=== PATIENT | female | born 1965 | race Caucasian/White ===

== ENCOUNTER 2018-01-01 05:15 | Emergency (ER) | payer MEDICAID ==
[~2018-01-01] VITALS: Ht 160 cm; Wt 98.0 kg
[2018-01-01 06:34] LABS: Basophils # (auto) 0.1 uL; Basophils % (auto) 1.3 % (0.0-2.0); Eosinophils # (auto) 0.5 uL; Eosinophils % (auto) 5.2 % (0.0-7.0); Hemoglobin 12.6 g/dL (12.2-16.2); Lymphocytes # (auto) 3.7 uL; Lymphocytes % (auto) 39.3 % (10.0-50.0); Mean Corpuscular Hemoglobin 29.8 pg (28.0-32.0); Mean Corpuscular Hgb Conc. 33.2 g/dL (32.0-36.0); Mean Corpuscular Volume 89.6 fL (80.0-100.0); Monocytes # (auto) 0.8 uL; Monocytes % (auto) 8.6 % (0.0-12.0); Neutrophils # (auto) 4.3 uL; Neutrophils % (auto) 45.6 % (37.0-80.0); Nucleated Red Blood Cells % 0.1 %; Platelet Count (auto) 268 10^3/uL (140-450); Red Blood Cells 4.23 10^6/uL (4.0-5.20); Red Cell Distribution Width 13.6 % (11.8-14.3); White Blood Cell 9.5 10^3/uL (4.4-10.8)
[2018-01-01 06:50] LABS: INR 0.96 (0.9-1.15); Partial Thromboplastin Time 27.4 sec (22.64-33.71); Prothrombin Time 10.5 sec (9.37-12.3)
[2018-01-01 06:52] LABS: Albumin 3.6 g/dL (3.4-5.0); BUN/Creatinine Ratio 26.4; Bilirubin, Total 0.5 mg/dL (0.2-1.0); Calcium 8.8 mg/dL (8.5-10.1); Magnesium 2.7 mg/dL (1.6-2.6); Potassium 3.8 mmol/L (3.5-5.1); Total Protein 7.7 g/dL (6.4-8.2)
[2018-01-01] MEDS ORDERED: IOHEXOL 350 MG/ML 100ML IJ ONE (08:09)
[2018-01-01] MEDS ORDERED: ENOXAPARIN SOD 100 MG/1 ML SYRINGE SC ONE (08:15)
[2018-01-01] MEDS ORDERED: NALBUPHINE HCL 10 MG/1ml INJECTION IV ONE (10:15)
[2018-01-01] MEDS ORDERED: ONDANSETRON HCL 4 MG/2 ML VIAL IV ONE (10:15)
[2018-01-01] MEDS ORDERED: LISINOPRIL 20 MG TAB PO ONE (10:15)
[2018-01-01 12:04] VITALS: BP 147/77
== END 2018-01-01 12:38 | disposition short-term general hospital (02) ==
LOC: ER 05:15
DX: S72.402D Unspecified fracture of lower end of left femur, subsequent encounter for closed fracture with routine healing (principal); I10 Essential (primary) hypertension; X58.XXXD Exposure to other specified factors, subsequent encounter
CPT/HCPCS: 36415; 71275; 73700; 80053; 83735; 83880; 84702; 85025; 85379; 85610; 85730; 93005; 93971; 96372; 96374; 96375; 99285; J1650; J2300; J2405; Q9967

== ENCOUNTER 2019-02-12 14:59 | Emergency (ER) | payer MEDICAID ==
[~2019-02-12] VITALS: Ht 162.6 cm; Wt 99.8 kg
[2019-02-12 15:27] VITALS: BP 153/97
[2019-02-12] MEDS ORDERED: KETOROLAC TROMETH 60MG/2ML VIAL IM ONE (16:30)
== END 2019-02-12 17:16 | disposition home or self-care (01) ==
LOC: ER 15:06
DX: M23.92 Unspecified internal derangement of left knee (principal); M25.462 Effusion, left knee; I10 Essential (primary) hypertension; Z96.652 Presence of left artificial knee joint
CPT/HCPCS: 73562; 93971; 96372; 99284; J1885

== ENCOUNTER 2020-01-18 03:42 | Emergency (ER) | payer SELFPAY ==
[~2020-01-18] VITALS: Ht 160 cm; Wt 100.7 kg
[2020-01-18] MEDS ORDERED: cloNIDine HCL 0.1 MG TAB PO ONE (04:00)
[2020-01-18 04:22] VITALS: BP 190/108
[2020-01-18] MEDS ORDERED: cefTRIAXone SOD 1,000 MG VL IM ONE (05:00)
== END 2020-01-18 04:58 | disposition home or self-care (01) ==
LOC: ER 03:46
DX: S61.451A Open bite of right hand, initial encounter (principal); I10 Essential (primary) hypertension; W54.0XXA Bitten by dog, initial encounter; Y93.89 Activity, other specified; Y99.8 Other external cause status; Y92.89 Other specified places as the place of occurrence of the external cause
CPT/HCPCS: 73130; 96372; 99283; J0696

== ENCOUNTER 2020-10-11 17:32 | Inpatient (IN) | payer MEDICAID, OTHER ==
[~2020-10-11] VITALS: Ht 160 cm; Wt 101.0 kg
[2020-10-11] MEDS: ACCU-CHEK COMFORT CURVE STRIP VI SCH (01:15)
[2020-10-11] MEDS ORDERED: REMDESIVIR PER PHARMACY 0 ML IV SCH (20:15)
[2020-10-11] MEDS ORDERED: NITROGLYCERIN 0.4 MG SL TAB SL PRN (20:15)
[2020-10-11] MEDS ORDERED: ALBUTEROL SULF HFA 90MCG INH 200DOSE IN PRN (20:15)
[2020-10-11] MEDS ORDERED: DEXTROSE (50%) 50ML SYRG IV PRN (20:15)
[2020-10-11] MEDS ORDERED: MORPHINE SULF INJ 2 MG/ML SYRINGE 1ML IV PRN (20:15)
[2020-10-11 21:25] LABS: Basophils # (auto) 0 10 ^3/uL (0-0.2); Basophils % (auto) 0.2 % (0.0-2.0); Eosinophils # (auto) 0 10 ^3/uL (0-0.8); Eosinophils % (auto) 0.1 % (0.0-7.0); Hematocrit 44.3 % (36.0-46.0); Hemoglobin 14.8 g/dL (12.2-16.2); Lymphocytes # (auto) 1.7 10 ^3/uL (0.4-5.4); Lymphocytes % (auto) 26.8 % (10.0-50.0); Mean Corpuscular Hemoglobin 29.7 pg (28.0-32.0); Mean Corpuscular Hgb Conc. 33.4 g/dL (32.0-36.0); Mean Corpuscular Volume 88.9 fL (80.0-100.0); Monocytes # (auto) 0.4 10 ^3/uL (0-1.3); Monocytes % (auto) 7.1 % (0.0-12.0); Neutrophils # (auto) 4.1 10 ^3/uL (1.6-8.6); Neutrophils % (auto) 65.8 % (37.0-80.0); Nucleated Red Blood Cells % 0.3 %; Platelet Count (auto) 147 10^3/uL (140-450); Red Blood Cells 4.99 10^6/uL (4.0-5.20); Red Cell Distribution Width 13.1 % (11.8-14.3); White Blood Cell 6.2 10^3/uL (4.4-10.8)
[2020-10-11 21:41] LABS: Partial Thromboplastin Time 27.6 sec (23.0-31.2)
[2020-10-11 21:48] LABS: Albumin 3.5 g/dL (3.4-5.0); Calcium 8.4 mg/dL (8.5-10.1); Potassium 3.6 mmol/L (3.5-5.1)
[2020-10-11 21:55] LABS: BUN/Creatinine Ratio 18.1; Bilirubin, Total 0.9 mg/dL (0.2-1.0); CRP High Sensitivity 6.97 mg/dL (< 0.3)
[2020-10-11] MEDS ORDERED: BUDESONIDE (INHALATION) 180 MCG IH IN SCH (22:00)
[2020-10-11] MEDS ORDERED: REMDESIVIR 200 MG in NS 210ml LOADING DOSE ADULT IV ONE (23:00)
[2020-10-12] VITALS: BP 124/82
[2020-10-12] MEDS: ALBUTEROL SULF 2.5 MG/0.5ML(0.5%) NEB SOLN NEB PRN (01:05)
[2020-10-12] MEDS: InsuLIN REG 1unit/0.01ml Soln (100units/ml) SC SCH ×5 (01:15→23:18)
[2020-10-12] MEDS: ACETAMINOPHEN 500 MG TAB PO PRN ×3 (01:15→21:55)
[2020-10-12] MEDS: guaiFENesin-CODEINE Liq 5 ML UD PO PRN ×2 (01:15→09:57)
[2020-10-12] MEDS: ENOXAPARIN SOD 40 MG/0.4 ML SYRINGE SC SCH ×3 (01:15→21:44)
[2020-10-12 01:59] VITALS: BP 124/82
[2020-10-12] MEDS: cefTRIAXone 1GM/50ML D5W 50 ML IV SCH ×2 (03:38→09:33)
[2020-10-12] MEDS: AZITHROMYCIN 500MG/D5WorNS 250ml IV SCH ×2 (04:13→10:26)
[2020-10-12] MEDS ORDERED: METF-370 PO (04:28)
[2020-10-12] MEDS ORDERED: LISI-646 PO (04:28)
[2020-10-12] MEDS ORDERED: ASPI-543 PO (04:28)
[2020-10-12 06:00] VITALS: BP 131/69
[2020-10-12] MEDS: ACCU-CHEK COMFORT CURVE STRIP VI SCH ×4 (06:43→21:44)
[2020-10-12] MEDS ORDERED: ONDANSETRON ODT 4 MG TAB PO PRN (08:00)
[2020-10-12] MEDS: MORPHINE SULF INJ 2 MG/ML SYRINGE 1ML IV PRN ×3 (08:53→21:52)
[2020-10-12] MEDS ORDERED: cefTRIAXone 1GM/50ML D5W 50 ML IV SCH (09:00)
[2020-10-12 09:30] VITALS: BP 127/73
[2020-10-12] MEDS: DexAMETHasone SOD PHOS 10MG/1ML VIAL INJ IV SCH (09:36)
[2020-10-12] MEDS: FAMOTIDINE 20 MG TAB PO SCH (09:36)
[2020-10-12] MEDS: CHOLECALCIFEROL (VITD3) 2,000 UNIT CAP PO SCH (09:37)
[2020-10-12] MEDS: ASCORBIC ACID 1,000 MG TAB PO SCH (09:37)
[2020-10-12] MEDS ORDERED: AZITHROMYCIN 500MG/D5WorNS 250ml IV SCH (10:00)
[2020-10-12 11:05] LABS: Basophils # (auto) 0 10 ^3/uL (0-0.2); Basophils % (auto) 0.6 % (0.0-2.0); Eosinophils # (auto) 0 10 ^3/uL (0-0.8); Eosinophils % (auto) 0.3 % (0.0-7.0); Hematocrit 39.6 % (36.0-46.0); Hemoglobin 13.1 g/dL (12.2-16.2); Lymphocytes # (auto) 1.1 10 ^3/uL (0.4-5.4); Lymphocytes % (auto) 20.2 % (10.0-50.0); Mean Corpuscular Hemoglobin 29.9 pg (28.0-32.0); Mean Corpuscular Hgb Conc. 33.2 g/dL (32.0-36.0); Monocytes # (auto) 0.3 10 ^3/uL (0-1.3); Monocytes % (auto) 6.5 % (0.0-12.0); Neutrophils # (auto) 3.9 10 ^3/uL (1.6-8.6); Neutrophils % (auto) 72.4 % (37.0-80.0); Nucleated Red Blood Cells % 0.1 %; Platelet Count (auto) 125 10^3/uL (140-450); Red Blood Cells 4.39 10^6/uL (4.0-5.20); Red Cell Distribution Width 13.5 % (11.8-14.3); White Blood Cell 5.4 10^3/uL (4.4-10.8)
[2020-10-12] MEDS: BUDESONIDE (INHALATION) 0.5 MG/2 ML NEB NEB SCH ×2 (11:24→19:50)
[2020-10-12 11:25] LABS: Albumin 2.8 g/dL (3.4-5.0); Calcium 8.1 mg/dL (8.5-10.1); Potassium 3.9 mmol/L (3.5-5.1)
[2020-10-12 11:27] LABS: BUN/Creatinine Ratio 22.6; Bilirubin, Total 0.6 mg/dL (0.2-1.0); Total Protein 7.1 g/dL (6.4-8.2)
[2020-10-12 13:10] VITALS: BP 115/70
[2020-10-12] MEDS ORDERED: DEXTROSE (50%) 50ML SYRG IV PRN (15:00)
[2020-10-12] MEDS: REMDESIVIR 100 MG in SODIUM CHL 0.9% 250 ML IV SCH (15:40)
[2020-10-12] MEDS: HYDROcodone-ACET 5/325MG TAB PO PRN (16:01)
[2020-10-12] MEDS: guaiFENesin-DM 100/10mg/5ml SYR PO PRN ×2 (16:01→21:37)
[2020-10-12] MEDS: DOXYCYCLINE 100 MG TAB/CAP PO SCH (21:36)
[2020-10-12 22:00] VITALS: BP 112/56
[2020-10-13] MEDS: ALBUTEROL SULF 2.5 MG/0.5ML(0.5%) NEB SOLN NEB PRN ×3 (03:40→20:04)
[2020-10-13 05:00] VITALS: BP 118/79
[2020-10-13] MEDS: ACCU-CHEK COMFORT CURVE STRIP VI SCH ×4 (06:15→22:00)
[2020-10-13] MEDS: InsuLIN REG 1unit/0.01ml Soln (100units/ml) SC SCH ×4 (06:16→23:15)
[2020-10-13 07:30] LABS: Albumin 2.7 g/dL (3.4-5.0); Calcium 8.6 mg/dL (8.5-10.1); Potassium 4.8 mmol/L (3.5-5.1)
[2020-10-13 07:33] LABS: BUN/Creatinine Ratio 31.9; Bilirubin, Total 0.5 mg/dL (0.2-1.0); Total Protein 7.4 g/dL (6.4-8.2)
[2020-10-13] MEDS: FUROSEMIDE 40 MG/4 ML VIAL IV SCH (08:45)
[2020-10-13] MEDS: cefTRIAXone 1GM/50ML D5W 50 ML IV SCH (08:45)
[2020-10-13] MEDS: DexAMETHasone SOD PHOS 10MG/1ML VIAL INJ IV SCH (08:45)
[2020-10-13] MEDS: POTASSIUM CHL 10 Meq TABLET PO SCH (08:46)
[2020-10-13] MEDS: FAMOTIDINE 20 MG TAB PO SCH (08:46)
[2020-10-13] MEDS: DOXYCYCLINE 100 MG TAB/CAP PO SCH ×2 (08:46→21:04)
[2020-10-13] MEDS: CHOLECALCIFEROL (VITD3) 2,000 UNIT CAP PO SCH (08:46)
[2020-10-13] MEDS: ASCORBIC ACID 1,000 MG TAB PO SCH (08:46)
[2020-10-13] MEDS: ENOXAPARIN SOD 40 MG/0.4 ML SYRINGE SC SCH ×2 (08:47→21:03)
[2020-10-13] MEDS: guaiFENesin-DM 100/10mg/5ml SYR PO PRN ×2 (08:47→21:04)
[2020-10-13] MEDS: HYDROcodone-ACET 5/325MG TAB PO PRN ×2 (08:47→21:04)
[2020-10-13 09:00] VITALS: BP 140/75
[2020-10-13] MEDS: BUDESONIDE (INHALATION) 0.5 MG/2 ML NEB NEB SCH ×2 (10:30→20:04)
[2020-10-13] MEDS: REMDESIVIR 100 MG in SODIUM CHL 0.9% 250 ML IV SCH (15:00)
[2020-10-13 17:00] VITALS: BP 146/87
[2020-10-13] MEDS: Glucerna Carbsteady SHAKE Vanilla 8oz PO SCH (18:19)
[2020-10-13 22:00] VITALS: BP 135/78
[2020-10-14] VITALS (8 sets, daily range): BP systolic 120–141; BP diastolic 70–93
[2020-10-14] MEDS: MORPHINE SULF INJ 2 MG/ML SYRINGE 1ML IV PRN (00:31)
[2020-10-14] MEDS: InsuLIN REG 1unit/0.01ml Soln (100units/ml) SC SCH ×3 (06:18→18:00)
[2020-10-14] MEDS: ALBUTEROL SULF 2.5 MG/0.5ML(0.5%) NEB SOLN NEB PRN ×3 (06:35→22:07)
[2020-10-14] MEDS: BUDESONIDE (INHALATION) 0.5 MG/2 ML NEB NEB SCH ×2 (06:35→22:07)
[2020-10-14] MEDS: ACCU-CHEK COMFORT CURVE STRIP VI SCH ×5 (06:38→23:59)
[2020-10-14] MEDS: Glucerna Carbsteady SHAKE Vanilla 8oz PO SCH ×2 (08:00→18:00)
[2020-10-14 08:16] LABS: Albumin 2.8 g/dL (3.4-5.0); Calcium 9.2 mg/dL (8.5-10.1)
[2020-10-14 08:20] LABS: BUN/Creatinine Ratio 36.4; Bilirubin, Total 0.4 mg/dL (0.2-1.0)
[2020-10-14] MEDS: FUROSEMIDE 40 MG/4 ML VIAL IV SCH (10:30)
[2020-10-14] MEDS: DOXYCYCLINE 100 MG TAB/CAP PO SCH ×2 (10:30→21:27)
[2020-10-14] MEDS: ENOXAPARIN SOD 40 MG/0.4 ML SYRINGE SC SCH ×2 (10:30→21:28)
[2020-10-14] MEDS: ASCORBIC ACID 1,000 MG TAB PO SCH (10:30)
[2020-10-14] MEDS: CHOLECALCIFEROL (VITD3) 2,000 UNIT CAP PO SCH (10:30)
[2020-10-14] MEDS: POTASSIUM CHL 10 Meq TABLET PO SCH (10:30)
[2020-10-14] MEDS: FAMOTIDINE 20 MG TAB PO SCH (10:30)
[2020-10-14] MEDS: DexAMETHasone SOD PHOS 10MG/1ML VIAL INJ IV SCH (10:30)
[2020-10-14] MEDS: cefTRIAXone 1GM/50ML D5W 50 ML IV SCH (10:30)
[2020-10-14] MEDS: REMDESIVIR 100 MG in SODIUM CHL 0.9% 250 ML IV SCH (15:49)
[2020-10-14] MEDS ORDERED: DEXTROSE (50%) 50ML SYRG IV PRN (18:00)
[2020-10-14] MEDS: INSULIN LANTUS (GLARGINE) 1 /0.01ml (100units/ml) SC SCH (21:27)
[2020-10-14] MEDS: ACETAMINOPHEN 500 MG TAB PO PRN (22:32)
[2020-10-15] MEDS: InsuLIN REG 1unit/0.01ml Soln (100units/ml) SC SCH ×4 (00:21→18:40)
[2020-10-15] MEDS: ACCU-CHEK COMFORT CURVE STRIP VI SCH ×3 (05:57→18:00)
[2020-10-15 07:19] VITALS: BP 131/82
[2020-10-15] MEDS: BUDESONIDE (INHALATION) 0.5 MG/2 ML NEB NEB SCH ×2 (07:19)
[2020-10-15] MEDS: ALBUTEROL SULF 2.5 MG/0.5ML(0.5%) NEB SOLN NEB PRN (07:20)
[2020-10-15] MEDS: Glucerna Carbsteady SHAKE Vanilla 8oz PO SCH ×2 (08:00→18:00)
[2020-10-15] MEDS: DexAMETHasone SOD PHOS 10MG/1ML VIAL INJ IV SCH (09:23)
[2020-10-15] MEDS: POTASSIUM CHL 10 Meq TABLET PO SCH (09:23)
[2020-10-15] MEDS: DOXYCYCLINE 100 MG TAB/CAP PO SCH ×2 (09:23→21:59)
[2020-10-15] MEDS: ASCORBIC ACID 1,000 MG TAB PO SCH (09:23)
[2020-10-15] MEDS: cefTRIAXone 1GM/50ML D5W 50 ML IV SCH (09:23)
[2020-10-15] MEDS: FAMOTIDINE 20 MG TAB PO SCH (09:23)
[2020-10-15] MEDS: CHOLECALCIFEROL (VITD3) 2,000 UNIT CAP PO SCH (09:23)
[2020-10-15] MEDS: ENOXAPARIN SOD 40 MG/0.4 ML SYRINGE SC SCH ×2 (10:00→22:00)
[2020-10-15] MEDS: FUROSEMIDE 40 MG/4 ML VIAL IV SCH (10:00)
[2020-10-15 11:20] VITALS: BP 125/81
[2020-10-15 14:00] VITALS: BP 135/76
[2020-10-15 15:14] VITALS: BP 136/80
[2020-10-15] MEDS: REMDESIVIR 100 MG in SODIUM CHL 0.9% 250 ML IV SCH (15:50)
[2020-10-15] MEDS: guaiFENesin-DM 100/10mg/5ml SYR PO PRN (21:31)
[2020-10-15] MEDS: MORPHINE SULF INJ 2 MG/ML SYRINGE 1ML IV PRN (21:31)
[2020-10-15 21:56] VITALS: BP 125/57
[2020-10-15] MEDS: INSULIN LANTUS (GLARGINE) 1 /0.01ml (100units/ml) SC SCH (22:01)
[2020-10-15] MEDS: ACETAMINOPHEN 500 MG TAB PO PRN (23:16)
[2020-10-16] MEDS: MORPHINE SULF INJ 2 MG/ML SYRINGE 1ML IV PRN ×2 (01:39→23:00)
[2020-10-16] MEDS ORDERED: ONDANSETRON HCL 4 MG/2 ML VIAL IV PRN (02:30)
[2020-10-16] MEDS: BUDESONIDE (INHALATION) 0.5 MG/2 ML NEB NEB SCH ×2 (05:55→19:24)
[2020-10-16] MEDS: ALBUTEROL SULF 2.5 MG/0.5ML(0.5%) NEB SOLN NEB PRN ×4 (05:55→19:25)
[2020-10-16 05:57] VITALS: BP 116/67
[2020-10-16] MEDS: ACCU-CHEK COMFORT CURVE STRIP VI SCH ×4 (06:08→19:55)
[2020-10-16] MEDS: InsuLIN REG 1unit/0.01ml Soln (100units/ml) SC SCH ×4 (06:10→19:55)
[2020-10-16 08:00] VITALS: BP 124/71
[2020-10-16] MEDS: Glucerna Carbsteady SHAKE Vanilla 8oz PO SCH ×2 (08:00→18:00)
[2020-10-16 08:18] LABS: Basophils # (auto) 0 10 ^3/uL (0-0.2); Basophils % (auto) 0.1 % (0.0-2.0); Eosinophils # (auto) 0 10 ^3/uL (0-0.8); Hemoglobin 14.2 g/dL (12.2-16.2); Lymphocytes # (auto) 1.2 10 ^3/uL (0.4-5.4); Lymphocytes % (auto) 11.9 % (10.0-50.0); Mean Corpuscular Hemoglobin 29.9 pg (28.0-32.0); Mean Corpuscular Hgb Conc. 33.8 g/dL (32.0-36.0); Mean Corpuscular Volume 88.4 fL (80.0-100.0); Monocytes # (auto) 0.6 10 ^3/uL (0-1.3); Monocytes % (auto) 5.9 % (0.0-12.0); Neutrophils # (auto) 8.4 10 ^3/uL (1.6-8.6); Neutrophils % (auto) 82.1 % (37.0-80.0); Platelet Count (auto) 210 10^3/uL (140-450); Red Blood Cells 4.75 10^6/uL (4.0-5.20); Red Cell Distribution Width 12.9 % (11.8-14.3); White Blood Cell 10.2 10^3/uL (4.4-10.8)
[2020-10-16] MEDS: cefTRIAXone 1GM/50ML D5W 50 ML IV SCH (09:15)
[2020-10-16] MEDS: ASCORBIC ACID 1,000 MG TAB PO SCH (09:30)
[2020-10-16] MEDS: FUROSEMIDE 40 MG/4 ML VIAL IV SCH (09:30)
[2020-10-16] MEDS: DOXYCYCLINE 100 MG TAB/CAP PO SCH ×2 (09:30→20:29)
[2020-10-16] MEDS: CHOLECALCIFEROL (VITD3) 2,000 UNIT CAP PO SCH (09:30)
[2020-10-16] MEDS: POTASSIUM CHL 10 Meq TABLET PO SCH (09:30)
[2020-10-16] MEDS: DexAMETHasone SOD PHOS 10MG/1ML VIAL INJ IV SCH (09:30)
[2020-10-16] MEDS: ENOXAPARIN SOD 40 MG/0.4 ML SYRINGE SC SCH ×2 (09:30→20:29)
[2020-10-16] MEDS: FAMOTIDINE 20 MG TAB PO SCH (09:30)
[2020-10-16 12:00] VITALS: BP 137/78
[2020-10-16 16:00] VITALS: BP 107/64
[2020-10-16 20:00] VITALS: BP 116/90
[2020-10-16 21:00] VITALS: BP 116/90
[2020-10-16] MEDS: INSULIN LANTUS (GLARGINE) 1 /0.01ml (100units/ml) SC SCH (23:01)
[2020-10-17] VITALS (44 sets, daily range): BP systolic 75–165; BP diastolic 38–81
[2020-10-17] MEDS: InsuLIN REG 1unit/0.01ml Soln (100units/ml) SC SCH ×5 (05:31→23:54)
[2020-10-17] MEDS: ACCU-CHEK COMFORT CURVE STRIP VI SCH ×5 (05:31→23:58)
[2020-10-17] MEDS: MORPHINE SULF INJ 2 MG/ML SYRINGE 1ML IV PRN ×2 (05:53→11:05)
[2020-10-17 07:13] LABS: Calcium 9.1 mg/dL (8.5-10.1); Potassium 4.6 mmol/L (3.5-5.1)
[2020-10-17] MEDS: ALBUTEROL SULF 2.5 MG/0.5ML(0.5%) NEB SOLN NEB PRN (07:52)
[2020-10-17] MEDS: BUDESONIDE (INHALATION) 0.5 MG/2 ML NEB NEB SCH ×2 (07:52→22:00)
[2020-10-17] MEDS: Glucerna Carbsteady SHAKE Vanilla 8oz PO SCH ×2 (08:00→17:54)
[2020-10-17] MEDS: cefTRIAXone 1GM/50ML D5W 50 ML IV SCH (09:00)
[2020-10-17] MEDS: CHOLECALCIFEROL (VITD3) 2,000 UNIT CAP PO SCH (10:00)
[2020-10-17] MEDS: ENOXAPARIN SOD 40 MG/0.4 ML SYRINGE SC SCH (10:00)
[2020-10-17] MEDS: DexAMETHasone SOD PHOS 10MG/1ML VIAL INJ IV SCH (10:00)
[2020-10-17] MEDS: ASCORBIC ACID 1,000 MG TAB PO SCH (10:00)
[2020-10-17] MEDS: POTASSIUM CHL 10 Meq TABLET PO SCH (10:00)
[2020-10-17] MEDS: FAMOTIDINE 20 MG TAB PO SCH (10:00)
[2020-10-17] MEDS: FUROSEMIDE 40 MG/4 ML VIAL IV SCH (10:00)
[2020-10-17] MEDS: DOXYCYCLINE 100 MG TAB/CAP PO SCH (10:00)
[2020-10-17] MEDS ORDERED: LORazepam 2MG/ML-1ML VIAL IV PRN ×2 (10:30→12:15)
[2020-10-17] MEDS ORDERED: SUCCINYLCHOLINE CHLORIDE 20 MG/ML 10ML VIAL IV ONE (11:56)
[2020-10-17] MEDS ORDERED: ETOMIDATE (2MG/ML) 20ML VIAL IV ONE (11:56)
[2020-10-17] MEDS ORDERED: ROCURONIUM 10MG/ML 10ML VIAL IV ONE (11:57)
[2020-10-17] MEDS ORDERED: fentaNYL Drip 2500mCg/250mlNS 250 ML IV ONE (12:14)
[2020-10-17] MEDS ORDERED: MIDAZOLAM DRIP 50 mg/50mL 50 ML IV ONE ×2 (12:14→12:15)
[2020-10-17] MEDS: MIDAZOLAM DRIP 50 mg/50mL 50 ML IV SCH ×2 (12:15→20:51)
[2020-10-17] MEDS ORDERED: DexAMETHasone SOD PHOS 10MG/1ML VIAL INJ IV ONE (12:15)
[2020-10-17] MEDS: fentaNYL Drip 2500mCg/250mlNS 250 ML IV SCH (12:15)
[2020-10-17] MEDS ORDERED: ENOXAPARIN SOD 60 MG/0.6 ML SYRINGE SC ONE (12:15)
[2020-10-17] MEDS ORDERED: MORPHINE SULF INJ 2 MG/ML SYRINGE 1ML IV PRN (12:15)
[2020-10-17] MEDS ORDERED: ENOXAPARIN SOD 100 MG/1 ML SYRINGE SC ONE (12:26)
[2020-10-17] MEDS ORDERED: ACETAMINOPHEN 650 mg PER 20.3 mL UD GT PRN (13:15)
[2020-10-17 13:41] LABS: Albumin 2.8 g/dL (3.4-5.0); Calcium 8.5 mg/dL (8.5-10.1); Potassium 4.2 mmol/L (3.5-5.1)
[2020-10-17 13:43] LABS: BUN/Creatinine Ratio 29.8; Bilirubin, Total 0.9 mg/dL (0.2-1.0); Total Protein 7.4 g/dL (6.4-8.2)
[2020-10-17 13:52] LABS: Basophils # (auto) 0 10 ^3/uL (0-0.2); Basophils % (auto) 0.1 % (0.0-2.0); Eosinophils # (auto) 0 10 ^3/uL (0-0.8); Eosinophils % (auto) 0.1 % (0.0-7.0); Hematocrit 43.5 % (36.0-46.0); Hemoglobin 14.4 g/dL (12.2-16.2); Lymphocytes % (auto) 5.6 % (10.0-50.0); Mean Corpuscular Hemoglobin 29.8 pg (28.0-32.0); Mean Corpuscular Hgb Conc. 33.2 g/dL (32.0-36.0); Mean Corpuscular Volume 89.9 fL (80.0-100.0); Monocytes # (auto) 0.7 10 ^3/uL (0-1.3); Monocytes % (auto) 4.1 % (0.0-12.0); Neutrophils # (auto) 16.2 10 ^3/uL (1.6-8.6); Neutrophils % (auto) 90.1 % (37.0-80.0); Platelet Count (auto) 215 10^3/uL (140-450); Red Blood Cells 4.84 10^6/uL (4.0-5.20); Red Cell Distribution Width 13.3 % (11.8-14.3)
[2020-10-17] MEDS ORDERED: IPRATROPIUM BROM 0.5 MG/2.5ML INH SOL NEB SCH (14:00)
[2020-10-17] MEDS ORDERED: NOREPINEPHRINE 8 MG/250ML KIT 250 ML IV ONE (14:23)
[2020-10-17] MEDS ORDERED: levoFLOXacin 750MG 150 ML IV ONE (14:45)
[2020-10-17] MEDS ORDERED: SODIUM CHLORIDE 0.9% 500 ML IV ONE (14:45)
[2020-10-17] MEDS: PROPOFOL 100 ML IV SCH (16:00)
[2020-10-17] MEDS: ALBUMIN 25% 100 ML IV SCH ×2 (17:52→22:52)
[2020-10-17] MEDS: NOREPINEPHRINE 8 MG/250ML KIT 250 ML IV SCH (17:53)
[2020-10-17] MEDS: ALBUTEROL SULF 2.5 MG/0.5ML(0.5%) NEB SOLN NEB SCH (20:15)
[2020-10-17] MEDS ORDERED: methylPREDNISolone SOD SUCC 40 MG/ML VL IV SCH (20:30)
[2020-10-17] MEDS ORDERED: diphenhdrAMINE HCL 50 MG/1 ML VL IV SCH (20:30)
[2020-10-17] MEDS ORDERED: ACETAMINOPHEN 650 mg PER 20.3 mL UD PO SCH (20:30)
[2020-10-17] MEDS ORDERED: TOCILIZUMAB 400 MG in SODIUM CHL 0.9% 80 ML IV SCH (21:00)
[2020-10-17] MEDS: ENOXAPARIN SOD 100 MG/1 ML SYRINGE SC SCH (22:16)
[2020-10-17] MEDS: INSULIN LANTUS (GLARGINE) 1 /0.01ml (100units/ml) SC SCH (22:43)
[2020-10-18] VITALS (91 sets, daily range): BP systolic 90–224; BP diastolic 51–98
[2020-10-18] MEDS: MIDAZOLAM DRIP 50 mg/50mL 50 ML IV SCH ×3 (01:41→20:15)
[2020-10-18 03:30] LABS: Basophils # (auto) 0.1 10 ^3/uL (0-0.2); Basophils % (auto) 0.8 % (0.0-2.0); Eosinophils # (auto) 0 10 ^3/uL (0-0.8); Hematocrit 38.8 % (36.0-46.0); Hemoglobin 12.9 g/dL (12.2-16.2); Lymphocytes # (auto) 0.8 10 ^3/uL (0.4-5.4); Lymphocytes % (auto) 8.5 % (10.0-50.0); Mean Corpuscular Hemoglobin 29.7 pg (28.0-32.0); Mean Corpuscular Hgb Conc. 33.2 g/dL (32.0-36.0); Mean Corpuscular Volume 89.4 fL (80.0-100.0); Monocytes # (auto) 0.3 10 ^3/uL (0-1.3); Monocytes % (auto) 3.2 % (0.0-12.0); Neutrophils # (auto) 8.7 10 ^3/uL (1.6-8.6); Neutrophils % (auto) 87.5 % (37.0-80.0); Platelet Count (auto) 179 10^3/uL (140-450); Red Blood Cells 4.34 10^6/uL (4.0-5.20); Red Cell Distribution Width 13.5 % (11.8-14.3); White Blood Cell 9.9 10^3/uL (4.4-10.8)
[2020-10-18 03:55] LABS: Potassium 4.3 mmol/L (3.5-5.1)
[2020-10-18 04:01] LABS: BUN/Creatinine Ratio 24.5; Bilirubin, Total 0.9 mg/dL (0.2-1.0); Calcium 8.1 mg/dL (8.5-10.1)
[2020-10-18] MEDS: ACCU-CHEK COMFORT CURVE STRIP VI SCH ×4 (06:30→23:25)
[2020-10-18] MEDS: InsuLIN REG 1unit/0.01ml Soln (100units/ml) SC SCH ×4 (06:31→23:29)
[2020-10-18] MEDS: ALBUMIN 25% 100 ML IV SCH (06:45)
[2020-10-18] MEDS: Glucerna Carbsteady SHAKE Vanilla 8oz PO SCH (08:00)
[2020-10-18] MEDS: ALBUTEROL SULF 2.5 MG/0.5ML(0.5%) NEB SOLN NEB SCH ×2 (09:00→18:58)
[2020-10-18] MEDS: BUDESONIDE (INHALATION) 0.5 MG/2 ML NEB NEB SCH ×2 (09:00→18:56)
[2020-10-18] MEDS: IPRATROPIUM BROM 0.5 MG/2.5ML INH SOL NEB SCH ×2 (09:00→18:58)
[2020-10-18] MEDS: POTASSIUM CHL 10 Meq TABLET PO SCH (10:00)
[2020-10-18] MEDS ORDERED: levoFLOXacin 750MG 150 ML IV SCH (10:00)
[2020-10-18] MEDS: cefTRIAXone 1GM/50ML D5W 50 ML IV SCH (10:31)
[2020-10-18] MEDS: DexAMETHasone SOD PHOS 10MG/1ML VIAL INJ IV SCH (10:37)
[2020-10-18] MEDS: FUROSEMIDE 40 MG/4 ML VIAL IV SCH (10:38)
[2020-10-18] MEDS: PANTOPRAZOLE 40 MG/10 ML VIAL INJ IV SCH (10:39)
[2020-10-18] MEDS: ENOXAPARIN SOD 100 MG/1 ML SYRINGE SC SCH ×2 (10:41→23:25)
[2020-10-18] MEDS: CHOLECALCIFEROL (VITD3) 2,000 UNIT CAP PO SCH (10:41)
[2020-10-18] MEDS: ASCORBIC ACID 1,000 MG TAB PO SCH (10:41)
[2020-10-18] MEDS: fentaNYL Drip 2500mCg/250mlNS 250 ML IV SCH ×2 (12:15→22:43)
[2020-10-18] MEDS ORDERED: ACETAMINOPHEN 650 mg PER 20.3 mL UD PO ONE (14:30)
[2020-10-18] MEDS ORDERED: methylPREDNISolone SOD SUCC 40 MG/ML VL IV ONE (14:30)
[2020-10-18] MEDS ORDERED: diphenhdrAMINE HCL 50 MG/1 ML VL IV ONE (14:30)
[2020-10-18] MEDS ORDERED: TOCILIZUMAB 400 MG in SODIUM CHL 0.9% 80 ML IV ONE (15:00)
[2020-10-18] MEDS: PROPOFOL 100 ML IV SCH ×2 (16:00→20:59)
[2020-10-18] MEDS: NOREPINEPHRINE 8 MG/250ML KIT 250 ML IV SCH (17:30)
[2020-10-18] MEDS ORDERED: DOPamine 1600MCG/ML D5W 250 ML IV ONE (18:51)
[2020-10-18] MEDS: DOPamine 1600MCG/ML D5W 250 ML IV SCH (19:00)
[2020-10-18 19:29] LABS: Albumin 2.8 g/dL (3.4-5.0); Calcium 8.4 mg/dL (8.5-10.1); Magnesium 2.8 mg/dL (1.6-2.6)
[2020-10-18 19:32] LABS: BUN/Creatinine Ratio 30.1; Bilirubin, Total 0.6 mg/dL (0.2-1.0); Phosphorus 3.8 mg/dL (2.5-4.90); Total Protein 6.8 g/dL (6.4-8.2)
[2020-10-18] MEDS: INSULIN LANTUS (GLARGINE) 1 /0.01ml (100units/ml) SC SCH (23:28)
[2020-10-19] VITALS (98 sets, daily range): BP systolic 101–184; BP diastolic 58–94
[2020-10-19] MEDS: MIDAZOLAM DRIP 50 mg/50mL 50 ML IV SCH ×4 (00:28→18:50)
[2020-10-19] MEDS: PROPOFOL 100 ML IV SCH ×2 (01:19→08:00)
[2020-10-19 04:03] LABS: Basophils # (auto) 0 10 ^3/uL (0-0.2); Basophils % (auto) 0.3 % (0.0-2.0); Eosinophils # (auto) 0 10 ^3/uL (0-0.8); Hemoglobin 13.5 g/dL (12.2-16.2); Lymphocytes # (auto) 0.8 10 ^3/uL (0.4-5.4); Lymphocytes % (auto) 5.7 % (10.0-50.0); Mean Corpuscular Hemoglobin 29.1 pg (28.0-32.0); Mean Corpuscular Hgb Conc. 32.9 g/dL (32.0-36.0); Mean Corpuscular Volume 88.6 fL (80.0-100.0); Monocytes # (auto) 0.6 10 ^3/uL (0-1.3); Monocytes % (auto) 4.3 % (0.0-12.0); Neutrophils # (auto) 12.4 10 ^3/uL (1.6-8.6); Neutrophils % (auto) 89.7 % (37.0-80.0); Platelet Count (auto) 232 10^3/uL (140-450); Red Blood Cells 4.63 10^6/uL (4.0-5.20); Red Cell Distribution Width 13.2 % (11.8-14.3); White Blood Cell 13.8 10^3/uL (4.4-10.8)
[2020-10-19 04:20] LABS: Calcium 8.9 mg/dL (8.5-10.1); Potassium 3.7 mmol/L (3.5-5.1)
[2020-10-19 04:22] LABS: BUN/Creatinine Ratio 38.2
[2020-10-19] MEDS: InsuLIN REG 1unit/0.01ml Soln (100units/ml) SC SCH ×3 (06:15→18:25)
[2020-10-19] MEDS: ACCU-CHEK COMFORT CURVE STRIP VI SCH ×3 (06:16→18:19)
[2020-10-19] MEDS: DOPamine 1600MCG/ML D5W 250 ML IV SCH ×2 (08:24→22:08)
[2020-10-19] MEDS: BUDESONIDE (INHALATION) 0.5 MG/2 ML NEB NEB SCH ×2 (08:35→18:23)
[2020-10-19] MEDS: DexAMETHasone SOD PHOS 10MG/1ML VIAL INJ IV SCH (09:29)
[2020-10-19] MEDS: cefTRIAXone 1GM/50ML D5W 50 ML IV SCH (09:29)
[2020-10-19] MEDS: ASCORBIC ACID 1,000 MG TAB PO SCH (09:30)
[2020-10-19] MEDS: CHOLECALCIFEROL (VITD3) 2,000 UNIT CAP PO SCH (09:30)
[2020-10-19] MEDS: PANTOPRAZOLE 40 MG/10 ML VIAL INJ IV SCH (09:30)
[2020-10-19] MEDS: INSULIN LANTUS (GLARGINE) 1 /0.01ml (100units/ml) SC SCH ×2 (09:31→22:36)
[2020-10-19] MEDS: ENOXAPARIN SOD 100 MG/1 ML SYRINGE SC SCH ×2 (09:31→22:37)
[2020-10-19 10:55] LABS: Urine WBC None Seen /hpf (0 - 5)
[2020-10-19 11:25] LABS: Urine Bacteria FEW /hpf (None Seen); Urine Blood 2+ /uL (Negative); Urine Hyaline Cast FEW /lpf (0 - 2); Urine Specific Gravity 1.022 (1.001-1.035)
[2020-10-19 11:34] LABS: Urine Budding Yeast Many /hpf (None Seen)
[2020-10-19] MEDS: IPRATROPIUM BROM 0.5 MG/2.5ML INH SOL NEB SCH (18:23)
[2020-10-19] MEDS: ALBUTEROL SULF 2.5 MG/0.5ML(0.5%) NEB SOLN NEB SCH (18:23)
[2020-10-19] MEDS: NOREPINEPHRINE 8 MG/250ML KIT 250 ML IV SCH (18:26)
[2020-10-19] MEDS: levoFLOXacin 750MG 150 ML IV SCH (18:30)
[2020-10-19] MEDS: fentaNYL Drip 2500mCg/250mlNS 250 ML IV SCH (22:38)
[2020-10-20] VITALS (100 sets, daily range): BP systolic 101–170; BP diastolic 49–87
[2020-10-20] MEDS: MIDAZOLAM DRIP 50 mg/50mL 50 ML IV SCH ×3 (00:15→19:43)
[2020-10-20] MEDS: InsuLIN REG 1unit/0.01ml Soln (100units/ml) SC SCH ×4 (05:28→18:00)
[2020-10-20] MEDS: ACCU-CHEK COMFORT CURVE STRIP VI SCH ×3 (05:29→18:00)
[2020-10-20] MEDS: IPRATROPIUM BROM 0.5 MG/2.5ML INH SOL NEB SCH ×2 (06:00→22:39)
[2020-10-20] MEDS: ALBUTEROL SULF 2.5 MG/0.5ML(0.5%) NEB SOLN NEB SCH ×2 (07:20→22:39)
[2020-10-20] MEDS: BUDESONIDE (INHALATION) 0.5 MG/2 ML NEB NEB SCH ×2 (07:20→22:39)
[2020-10-20 07:27] LABS: Hemoglobin 12.5 g/dL (12.2-16.2); Mean Corpuscular Hemoglobin 29.9 pg (28.0-32.0); Mean Corpuscular Hgb Conc. 33.8 g/dL (32.0-36.0); Mean Corpuscular Volume 88.5 fL (80.0-100.0); Platelet Count (auto) 231 10^3/uL (140-450); Red Blood Cells 4.18 10^6/uL (4.0-5.20); White Blood Cell 11.3 10^3/uL (4.4-10.8)
[2020-10-20 07:48] LABS: Calcium 8.9 mg/dL (8.5-10.1); Potassium 3.8 mmol/L (3.5-5.1)
[2020-10-20 08:16] LABS: Basophils % (manual) 0 (0.0-2.0); Blast Cells 0; Eosinophils % (manual) 0 (0-7); Metamyelocytes % 0; Myelocytes % 0; Promyelocytes % 0; Reactive Lymphocytes 0
[2020-10-20 10:39] LABS: Band Neutrophils % (manual) 3; Lymphocytes % (manual) 4 (10.0-50.0); Monocytes % (manual) 2 (0-12)
[2020-10-20] MEDS: DexAMETHasone SOD PHOS 10MG/1ML VIAL INJ IV SCH (11:18)
[2020-10-20] MEDS: levoFLOXacin 750MG 150 ML IV SCH (11:18)
[2020-10-20] MEDS: PANTOPRAZOLE 40 MG/10 ML VIAL INJ IV SCH (11:19)
[2020-10-20] MEDS: CHOLECALCIFEROL (VITD3) 2,000 UNIT CAP PO SCH (11:19)
[2020-10-20] MEDS: ASCORBIC ACID 1,000 MG TAB PO SCH (11:19)
[2020-10-20] MEDS: INSULIN LANTUS (GLARGINE) 1 /0.01ml (100units/ml) SC SCH ×2 (11:24→22:19)
[2020-10-20] MEDS: ENOXAPARIN SOD 100 MG/1 ML SYRINGE SC SCH ×2 (11:25→22:19)
[2020-10-20] MEDS: DOPamine 1600MCG/ML D5W 250 ML IV SCH (11:42)
[2020-10-20] MEDS ORDERED: Glucerna 1.2 Cal 1Liter BOTTLE GT SCH (13:15)
[2020-10-20] MEDS: METOCLOPRAMIDE HCL 5MG/ml INJ 2ml VIAL IV SCH ×2 (15:30→22:17)
[2020-10-20] MEDS: PROPOFOL 100 ML IV SCH (16:00)
[2020-10-20] MEDS: NOREPINEPHRINE 8 MG/250ML KIT 250 ML IV SCH (17:30)
[2020-10-20] MEDS: hydrALAZINE HCL 20 MG/ML VL IV PRN (18:01)
[2020-10-20] MEDS: fentaNYL Drip 2500mCg/250mlNS 250 ML IV SCH (22:14)
[2020-10-21] VITALS (97 sets, daily range): BP systolic 97–157; BP diastolic 52–101
[2020-10-21] MEDS: DOPamine 1600MCG/ML D5W 250 ML IV SCH ×2 (01:16→14:48)
[2020-10-21] MEDS: InsuLIN REG 1unit/0.01ml Soln (100units/ml) SC SCH ×4 (01:26→17:59)
[2020-10-21] MEDS: ACCU-CHEK COMFORT CURVE STRIP VI SCH ×4 (01:27→17:32)
[2020-10-21] MEDS: MIDAZOLAM DRIP 50 mg/50mL 50 ML IV SCH ×2 (02:05→21:00)
[2020-10-21] MEDS: BUDESONIDE (INHALATION) 0.5 MG/2 ML NEB NEB SCH ×2 (06:45→22:18)
[2020-10-21] MEDS: ALBUTEROL SULF 2.5 MG/0.5ML(0.5%) NEB SOLN NEB SCH ×3 (06:45→22:18)
[2020-10-21] MEDS: IPRATROPIUM BROM 0.5 MG/2.5ML INH SOL NEB SCH ×3 (06:45→22:18)
[2020-10-21] MEDS: METOCLOPRAMIDE HCL 5MG/ml INJ 2ml VIAL IV SCH ×3 (07:26→21:52)
[2020-10-21] MEDS: PANTOPRAZOLE 40 MG/10 ML VIAL INJ IV SCH (09:15)
[2020-10-21] MEDS: CHOLECALCIFEROL (VITD3) 2,000 UNIT CAP PO SCH (09:15)
[2020-10-21] MEDS: ENOXAPARIN SOD 100 MG/1 ML SYRINGE SC SCH ×2 (09:15→21:52)
[2020-10-21] MEDS: DexAMETHasone SOD PHOS 10MG/1ML VIAL INJ IV SCH (09:15)
[2020-10-21] MEDS: INSULIN LANTUS (GLARGINE) 1 /0.01ml (100units/ml) SC SCH ×2 (09:16→22:42)
[2020-10-21] MEDS: ASCORBIC ACID 1,000 MG TAB PO SCH (09:16)
[2020-10-21] MEDS: levoFLOXacin 750MG 150 ML IV SCH (09:23)
[2020-10-21 10:23] LABS: Hematocrit 37.7 % (36.0-46.0); Hemoglobin 12.7 g/dL (12.2-16.2); Mean Corpuscular Hemoglobin 30.1 pg (28.0-32.0); Mean Corpuscular Hgb Conc. 33.7 g/dL (32.0-36.0); Mean Corpuscular Volume 89.3 fL (80.0-100.0); Platelet Count (auto) 250 10^3/uL (140-450); Red Blood Cells 4.22 10^6/uL (4.0-5.20); Red Cell Distribution Width 13.4 % (11.8-14.3); White Blood Cell 10.1 10^3/uL (4.4-10.8)
[2020-10-21 10:43] LABS: Basophils % (manual) 0 (0.0-2.0); Blast Cells 0; Eosinophils % (manual) 0 (0-7); Metamyelocytes % 0; Promyelocytes % 0; Reactive Lymphocytes 0
[2020-10-21 10:58] LABS: BUN/Creatinine Ratio 45.5; Calcium 8.8 mg/dL (8.5-10.1); Potassium 4.2 mmol/L (3.5-5.1)
[2020-10-21 14:17] LABS: Lymphocytes % (manual) 2 (10.0-50.0); Monocytes % (manual) 3 (0-12); Myelocytes % 1
[2020-10-21 14:18] LABS: Band Neutrophils % (manual) 6
[2020-10-21] MEDS: PROPOFOL 100 ML IV SCH (14:49)
[2020-10-21] MEDS: NOREPINEPHRINE 8 MG/250ML KIT 250 ML IV SCH (14:49)
[2020-10-21] MEDS: fentaNYL Drip 2500mCg/250mlNS 250 ML IV SCH (23:54)
[2020-10-22] VITALS (99 sets, daily range): BP systolic 98–156; BP diastolic 56–105
[2020-10-22] MEDS: MIDAZOLAM DRIP 50 mg/50mL 50 ML IV SCH ×5 (00:30→20:21)
[2020-10-22] MEDS: ACCU-CHEK COMFORT CURVE STRIP VI SCH ×4 (00:30→18:25)
[2020-10-22] MEDS: InsuLIN REG 1unit/0.01ml Soln (100units/ml) SC SCH ×4 (01:01→18:27)
[2020-10-22] MEDS: DOPamine 1600MCG/ML D5W 250 ML IV SCH ×2 (04:24→17:58)
[2020-10-22 06:33] LABS: Basophils # (auto) 0 10 ^3/uL (0-0.2); Basophils % (auto) 0.4 % (0.0-2.0); Eosinophils # (auto) 0 10 ^3/uL (0-0.8); Eosinophils % (auto) 0.2 % (0.0-7.0); Hematocrit 37.5 % (36.0-46.0); Hemoglobin 12.2 g/dL (12.2-16.2); Lymphocytes # (auto) 0.9 10 ^3/uL (0.4-5.4); Lymphocytes % (auto) 7.6 % (10.0-50.0); Mean Corpuscular Hemoglobin 29.4 pg (28.0-32.0); Mean Corpuscular Hgb Conc. 32.6 g/dL (32.0-36.0); Mean Corpuscular Volume 90.4 fL (80.0-100.0); Monocytes # (auto) 0.7 10 ^3/uL (0-1.3); Monocytes % (auto) 6.1 % (0.0-12.0); Neutrophils # (auto) 9.9 10 ^3/uL (1.6-8.6); Neutrophils % (auto) 85.7 % (37.0-80.0); Nucleated Red Blood Cells % 0.1 %; Platelet Count (auto) 262 10^3/uL (140-450); Red Blood Cells 4.15 10^6/uL (4.0-5.20); Red Cell Distribution Width 13.3 % (11.8-14.3); White Blood Cell 11.5 10^3/uL (4.4-10.8)
[2020-10-22] MEDS: METOCLOPRAMIDE HCL 5MG/ml INJ 2ml VIAL IV SCH ×3 (06:41→22:05)
[2020-10-22] MEDS: ALBUTEROL SULF 2.5 MG/0.5ML(0.5%) NEB SOLN NEB SCH ×3 (08:35→22:18)
[2020-10-22] MEDS: IPRATROPIUM BROM 0.5 MG/2.5ML INH SOL NEB SCH ×3 (08:35→22:18)
[2020-10-22] MEDS: BUDESONIDE (INHALATION) 0.5 MG/2 ML NEB NEB SCH ×2 (08:35→22:18)
[2020-10-22] MEDS: DexAMETHasone SOD PHOS 10MG/1ML VIAL INJ IV SCH (10:14)
[2020-10-22] MEDS: PANTOPRAZOLE 40 MG/10 ML VIAL INJ IV SCH (10:15)
[2020-10-22] MEDS: levoFLOXacin 750MG 150 ML IV SCH (10:15)
[2020-10-22] MEDS: CHOLECALCIFEROL (VITD3) 2,000 UNIT CAP PO SCH (10:16)
[2020-10-22] MEDS: ASCORBIC ACID 1,000 MG TAB PO SCH (10:16)
[2020-10-22] MEDS: ENOXAPARIN SOD 100 MG/1 ML SYRINGE SC SCH ×2 (10:16→22:05)
[2020-10-22] MEDS: INSULIN LANTUS (GLARGINE) 1 /0.01ml (100units/ml) SC SCH ×2 (10:50→22:07)
[2020-10-22] MEDS ORDERED: Glucerna 1.2 Cal 1Liter BOTTLE GT SCH (12:00)
[2020-10-22] MEDS: fentaNYL Drip 2500mCg/250mlNS 250 ML IV SCH (13:02)
[2020-10-22] MEDS: PROPOFOL 100 ML IV SCH (16:00)
[2020-10-22] MEDS: NOREPINEPHRINE 8 MG/250ML KIT 250 ML IV SCH (17:30)
[2020-10-23] VITALS (92 sets, daily range): BP systolic 101–172; BP diastolic 53–89
[2020-10-23] MEDS: ACCU-CHEK COMFORT CURVE STRIP VI SCH ×4 (00:58→18:00)
[2020-10-23] MEDS: InsuLIN REG 1unit/0.01ml Soln (100units/ml) SC SCH ×4 (00:58→18:34)
[2020-10-23] MEDS: ALBUTEROL SULF 2.5 MG/0.5ML(0.5%) NEB SOLN NEB SCH ×3 (04:15→22:00)
[2020-10-23] MEDS: fentaNYL Drip 2500mCg/250mlNS 250 ML IV SCH ×2 (04:32→22:54)
[2020-10-23] MEDS: METOCLOPRAMIDE HCL 5MG/ml INJ 2ml VIAL IV SCH ×3 (05:41→21:42)
[2020-10-23] MEDS: IPRATROPIUM BROM 0.5 MG/2.5ML INH SOL NEB SCH ×3 (06:00→19:30)
[2020-10-23] MEDS: MIDAZOLAM DRIP 50 mg/50mL 50 ML IV SCH ×5 (06:29→19:54)
[2020-10-23 09:01] LABS: Hematocrit 38.1 % (36.0-46.0); Hemoglobin 12.4 g/dL (12.2-16.2); Mean Corpuscular Hemoglobin 29.5 pg (28.0-32.0); Mean Corpuscular Hgb Conc. 32.5 g/dL (32.0-36.0); Mean Corpuscular Volume 90.8 fL (80.0-100.0); Platelet Count (auto) 251 10^3/uL (140-450); Red Cell Distribution Width 13.7 % (11.8-14.3); White Blood Cell 14.7 10^3/uL (4.4-10.8)
[2020-10-23 09:03] LABS: Potassium 4.7 mmol/L (3.5-5.1)
[2020-10-23 09:04] LABS: Basophils % (manual) 0 (0.0-2.0); Blast Cells 0; Eosinophils % (manual) 0 (0-7); Metamyelocytes % 0; Promyelocytes % 0; Reactive Lymphocytes 0
[2020-10-23 09:16] LABS: Albumin 2.6 g/dL (3.4-5.0); Bilirubin, Total 1.2 mg/dL (0.2-1.0); Calcium 8.7 mg/dL (8.5-10.1)
[2020-10-23 09:39] LABS: Band Neutrophils % (manual) 2; Lymphocytes % (manual) 12 (10.0-50.0); Monocytes % (manual) 5 (0-12); Myelocytes % 2
[2020-10-23] MEDS: DexAMETHasone SOD PHOS 10MG/1ML VIAL INJ IV SCH (10:00)
[2020-10-23] MEDS: levoFLOXacin 750MG 150 ML IV SCH (10:00)
[2020-10-23] MEDS: BUDESONIDE (INHALATION) 0.5 MG/2 ML NEB NEB SCH ×2 (10:00→19:30)
[2020-10-23] MEDS: ASCORBIC ACID 1,000 MG TAB PO SCH (10:00)
[2020-10-23] MEDS: ENOXAPARIN SOD 100 MG/1 ML SYRINGE SC SCH ×2 (10:00→21:42)
[2020-10-23] MEDS: PANTOPRAZOLE 40 MG/10 ML VIAL INJ IV SCH (10:00)
[2020-10-23] MEDS: CHOLECALCIFEROL (VITD3) 2,000 UNIT CAP PO SCH (10:00)
[2020-10-23] MEDS: INSULIN LANTUS (GLARGINE) 1 /0.01ml (100units/ml) SC SCH (10:30)
[2020-10-23] MEDS ORDERED: ZINC SULFATE 220mg CAP or TAB PO ONE (12:00)
[2020-10-23] MEDS: PROPOFOL 100 ML IV SCH (16:00)
[2020-10-23] MEDS: NOREPINEPHRINE 8 MG/250ML KIT 250 ML IV SCH (17:30)
[2020-10-24] VITALS (96 sets, daily range): BP systolic 95–194; BP diastolic 52–111
[2020-10-24] MEDS: InsuLIN REG 1unit/0.01ml Soln (100units/ml) SC SCH ×4 (00:28→17:48)
[2020-10-24] MEDS: INSULIN LANTUS (GLARGINE) 1 /0.01ml (100units/ml) SC SCH ×3 (00:32→22:00)
[2020-10-24] MEDS: ACCU-CHEK COMFORT CURVE STRIP VI SCH ×4 (00:33→17:49)
[2020-10-24] MEDS: MIDAZOLAM DRIP 50 mg/50mL 50 ML IV SCH ×4 (02:36→19:43)
[2020-10-24 05:06] LABS: Calcium 8.9 mg/dL (8.5-10.1); Potassium 4.3 mmol/L (3.5-5.1)
[2020-10-24 05:30] LABS: Basophils # (auto) 0.1 10 ^3/uL (0-0.2); Basophils % (auto) 0.6 % (0.0-2.0); Eosinophils # (auto) 0.1 10 ^3/uL (0-0.8); Eosinophils % (auto) 0.7 % (0.0-7.0); Hematocrit 36.7 % (36.0-46.0); Hemoglobin 11.8 g/dL (12.2-16.2); Lymphocytes # (auto) 1.3 10 ^3/uL (0.4-5.4); Lymphocytes % (auto) 9.7 % (10.0-50.0); Mean Corpuscular Hemoglobin 29.2 pg (28.0-32.0); Mean Corpuscular Hgb Conc. 32.2 g/dL (32.0-36.0); Mean Corpuscular Volume 90.9 fL (80.0-100.0); Monocytes # (auto) 0.7 10 ^3/uL (0-1.3); Monocytes % (auto) 5.1 % (0.0-12.0); Neutrophils # (auto) 11.6 10 ^3/uL (1.6-8.6); Neutrophils % (auto) 83.9 % (37.0-80.0); Nucleated Red Blood Cells % 0.2 %; Platelet Count (auto) 231 10^3/uL (140-450); Red Blood Cells 4.04 10^6/uL (4.0-5.20); Red Cell Distribution Width 13.5 % (11.8-14.3); White Blood Cell 13.8 10^3/uL (4.4-10.8)
[2020-10-24] MEDS: METOCLOPRAMIDE HCL 5MG/ml INJ 2ml VIAL IV SCH ×3 (05:49→23:17)
[2020-10-24] MEDS: BUDESONIDE (INHALATION) 0.5 MG/2 ML NEB NEB SCH ×2 (06:20→22:00)
[2020-10-24] MEDS: ALBUTEROL SULF 2.5 MG/0.5ML(0.5%) NEB SOLN NEB SCH ×3 (06:20→22:00)
[2020-10-24] MEDS: IPRATROPIUM BROM 0.5 MG/2.5ML INH SOL NEB SCH ×3 (06:20→22:00)
[2020-10-24] MEDS: ZINC SULFATE 220mg CAP or TAB PO SCH (10:20)
[2020-10-24] MEDS: ASCORBIC ACID 1,000 MG TAB PO SCH (10:21)
[2020-10-24] MEDS: DexAMETHasone SOD PHOS 10MG/1ML VIAL INJ IV SCH (10:21)
[2020-10-24] MEDS: PANTOPRAZOLE 40 MG/10 ML VIAL INJ IV SCH (10:22)
[2020-10-24] MEDS: levoFLOXacin 750MG 150 ML IV SCH (10:25)
[2020-10-24] MEDS: ENOXAPARIN SOD 100 MG/1 ML SYRINGE SC SCH ×2 (10:26→23:18)
[2020-10-24] MEDS: CHOLECALCIFEROL (VITD3) 2,000 UNIT CAP PO SCH (10:30)
[2020-10-24] MEDS ORDERED: LACTULOSE 20Gm/30ML SOLN PO ONE (13:00)
[2020-10-24 15:07] LABS: INR 1.08 (0.9-1.15); Partial Thromboplastin Time 26.8 sec (23.0-31.2)
[2020-10-24] MEDS: PROPOFOL 100 ML IV SCH (15:29)
[2020-10-24] MEDS: hydrALAZINE HCL 20 MG/ML VL IV PRN (16:03)
[2020-10-24] MEDS: NOREPINEPHRINE 8 MG/250ML KIT 250 ML IV SCH (17:09)
[2020-10-24] MEDS: fentaNYL Drip 2500mCg/250mlNS 250 ML IV SCH (18:32)
[2020-10-24] MEDS: LACTULOSE 20Gm/30ML SOLN PO SCH (23:17)
[2020-10-24] MEDS: SODIUM CHLOR 0.9% PF (SALINE LOCK) 10ML VIAL/SYR IV SCH (23:17)
[2020-10-25] VITALS (97 sets, daily range): BP systolic 77–150; BP diastolic 41–94
[2020-10-25] MEDS: ACCU-CHEK COMFORT CURVE STRIP VI SCH ×4 (00:30→18:00)
[2020-10-25] MEDS: MIDAZOLAM DRIP 50 mg/50mL 50 ML IV SCH ×4 (00:30→19:20)
[2020-10-25] MEDS: InsuLIN REG 1unit/0.01ml Soln (100units/ml) SC SCH ×4 (00:30→18:00)
[2020-10-25 05:44] LABS: Hematocrit 36.1 % (36.0-46.0); Hemoglobin 11.9 g/dL (12.2-16.2); Mean Corpuscular Volume 90.9 fL (80.0-100.0); Platelet Count (auto) 222 10^3/uL (140-450); Red Blood Cells 3.97 10^6/uL (4.0-5.20); Red Cell Distribution Width 13.7 % (11.8-14.3); White Blood Cell 12.9 10^3/uL (4.4-10.8)
[2020-10-25 05:58] LABS: Potassium 3.9 mmol/L (3.5-5.1)
[2020-10-25] MEDS: IPRATROPIUM BROM 0.5 MG/2.5ML INH SOL NEB SCH ×4 (06:00→22:13)
[2020-10-25] MEDS: ALBUTEROL SULF 2.5 MG/0.5ML(0.5%) NEB SOLN NEB SCH ×4 (06:00→22:13)
[2020-10-25 06:02] LABS: Basophils % (manual) 0 (0.0-2.0); Blast Cells 0; Promyelocytes % 0; Reactive Lymphocytes 0
[2020-10-25 06:12] LABS: Albumin 2.5 g/dL (3.4-5.0); BUN/Creatinine Ratio 50.7; Calcium 8.6 mg/dL (8.5-10.1); Total Protein 5.6 g/dL (6.4-8.2)
[2020-10-25] MEDS: METOCLOPRAMIDE HCL 5MG/ml INJ 2ml VIAL IV SCH ×3 (06:29→23:08)
[2020-10-25] MEDS: BUDESONIDE (INHALATION) 0.5 MG/2 ML NEB NEB SCH ×2 (06:58→22:13)
[2020-10-25 07:22] LABS: Band Neutrophils % (manual) 2; Eosinophils % (manual) 2 (0-7); Lymphocytes % (manual) 14 (10.0-50.0); Metamyelocytes % 3; Monocytes % (manual) 9 (0-12); Myelocytes % 3
[2020-10-25] MEDS: ZINC SULFATE 220mg CAP or TAB PO SCH (09:35)
[2020-10-25] MEDS: LACTULOSE 20Gm/30ML SOLN PO SCH ×2 (09:35→23:09)
[2020-10-25] MEDS: DexAMETHasone SOD PHOS 10MG/1ML VIAL INJ IV SCH (09:35)
[2020-10-25] MEDS: ENOXAPARIN SOD 100 MG/1 ML SYRINGE SC SCH ×2 (09:35→23:09)
[2020-10-25] MEDS: levoFLOXacin 750MG 150 ML IV SCH (09:36)
[2020-10-25] MEDS: SODIUM CHLOR 0.9% PF (SALINE LOCK) 10ML VIAL/SYR IV SCH ×2 (09:36→23:09)
[2020-10-25] MEDS: PANTOPRAZOLE 40 MG/10 ML VIAL INJ IV SCH (09:38)
[2020-10-25] MEDS: ASCORBIC ACID 1,000 MG TAB PO SCH (09:38)
[2020-10-25] MEDS: CHOLECALCIFEROL (VITD3) 2,000 UNIT CAP PO SCH (09:39)
[2020-10-25] MEDS: INSULIN LANTUS (GLARGINE) 1 /0.01ml (100units/ml) SC SCH ×2 (09:40→22:00)
[2020-10-25] MEDS ORDERED: FUROSEMIDE 40 MG/4 ML VIAL IV ONE (10:15)
[2020-10-25] MEDS ORDERED: POTASSIUM EFFERVESENT TAB 25 MEQ GT ONE (10:15)
[2020-10-25] MEDS: fentaNYL Drip 2500mCg/250mlNS 250 ML IV SCH ×2 (10:54→23:41)
[2020-10-25] MEDS ORDERED: PIPERACILLIN-TAZOB 3.375GM 100 ML IV ONE (13:00)
[2020-10-25] MEDS: PIPERACILLIN-TAZOB 3.375GM 100 ML IV SCH ×2 (13:29→23:09)
[2020-10-25] MEDS: NOREPINEPHRINE 8 MG/250ML KIT 250 ML IV SCH (14:52)
[2020-10-25] MEDS: PROPOFOL 100 ML IV SCH (16:00)
[2020-10-26] VITALS (97 sets, daily range): BP systolic 74–149; BP diastolic 41–96
[2020-10-26] MEDS: InsuLIN REG 1unit/0.01ml Soln (100units/ml) SC SCH ×4 (01:29→18:00)
[2020-10-26] MEDS: ACCU-CHEK COMFORT CURVE STRIP VI SCH ×4 (01:29→18:00)
[2020-10-26 05:14] LABS: Hematocrit 36.2 % (36.0-46.0); Hemoglobin 11.9 g/dL (12.2-16.2); Mean Corpuscular Hemoglobin 29.9 pg (28.0-32.0); Mean Corpuscular Hgb Conc. 32.9 g/dL (32.0-36.0); Mean Corpuscular Volume 90.9 fL (80.0-100.0); Platelet Count (auto) 272 10^3/uL (140-450); Red Blood Cells 3.99 10^6/uL (4.0-5.20); Red Cell Distribution Width 13.9 % (11.8-14.3); White Blood Cell 16.8 10^3/uL (4.4-10.8)
[2020-10-26 05:24] LABS: Albumin 2.7 g/dL (3.4-5.0); BUN/Creatinine Ratio 38.4; Calcium 8.2 mg/dL (8.5-10.1); Potassium 4.2 mmol/L (3.5-5.1)
[2020-10-26 05:27] LABS: Bilirubin, Total 1.2 mg/dL (0.2-1.0); Total Protein 5.7 g/dL (6.4-8.2)
[2020-10-26] MEDS: MIDAZOLAM DRIP 50 mg/50mL 50 ML IV SCH ×2 (06:00→12:18)
[2020-10-26] MEDS: METOCLOPRAMIDE HCL 5MG/ml INJ 2ml VIAL IV SCH ×3 (06:22→21:24)
[2020-10-26] MEDS: PIPERACILLIN-TAZOB 3.375GM 100 ML IV SCH ×3 (06:22→23:10)
[2020-10-26 06:37] LABS: Basophils % (manual) 0 (0.0-2.0); Blast Cells 0; Eosinophils % (manual) 0 (0-7); Metamyelocytes % 0; Promyelocytes % 0; Reactive Lymphocytes 0
[2020-10-26] MEDS: ALBUTEROL SULF 2.5 MG/0.5ML(0.5%) NEB SOLN NEB SCH ×3 (06:58→20:36)
[2020-10-26] MEDS: IPRATROPIUM BROM 0.5 MG/2.5ML INH SOL NEB SCH ×3 (06:58→20:36)
[2020-10-26] MEDS: BUDESONIDE (INHALATION) 0.5 MG/2 ML NEB NEB SCH ×2 (06:58→20:36)
[2020-10-26] MEDS: LACTULOSE 20Gm/30ML SOLN PO SCH ×2 (09:54→21:24)
[2020-10-26] MEDS: SODIUM CHLOR 0.9% PF (SALINE LOCK) 10ML VIAL/SYR IV SCH ×2 (09:54→21:24)
[2020-10-26] MEDS: ENOXAPARIN SOD 100 MG/1 ML SYRINGE SC SCH ×2 (09:54→22:00)
[2020-10-26] MEDS: ZINC SULFATE 220mg CAP or TAB PO SCH (09:54)
[2020-10-26] MEDS: PANTOPRAZOLE 40 MG/10 ML VIAL INJ IV SCH (09:54)
[2020-10-26] MEDS: CHOLECALCIFEROL (VITD3) 2,000 UNIT CAP PO SCH (09:55)
[2020-10-26] MEDS: ASCORBIC ACID 1,000 MG TAB PO SCH (09:55)
[2020-10-26] MEDS: DexAMETHasone SOD PHOS 10MG/1ML VIAL INJ IV SCH (09:55)
[2020-10-26] MEDS: INSULIN LANTUS (GLARGINE) 1 /0.01ml (100units/ml) SC SCH ×2 (09:59→23:17)
[2020-10-26 11:14] LABS: Band Neutrophils % (manual) 10; Lymphocytes % (manual) 13 (10.0-50.0); Monocytes % (manual) 7 (0-12); Myelocytes % 1
[2020-10-26] MEDS: PROPOFOL 100 ML IV SCH ×3 (15:59→23:11)
[2020-10-26] MEDS: NOREPINEPHRINE 8 MG/250ML KIT 250 ML IV SCH (18:04)
[2020-10-26] MEDS ORDERED: LINEZOLID 600MG/300ML 300 ML IV SCH (20:00)
[2020-10-27] VITALS (21 sets, daily range): BP systolic 75–118; BP diastolic 17–60
[2020-10-27] MEDS ORDERED: fentaNYL Drip 2500mCg/250mlNS 250 ML IV ONE (00:41)
[2020-10-27] MEDS ORDERED: fentaNYL Drip 2500mCg/250mlNS 250 ML IV SCH (00:45)
[2020-10-27 02:08] LABS: Lactic Acid w/Reflex 6.3 mmol/L (0.4-2.0)
[2020-10-27] MEDS ORDERED: SODIUM BICARBONATE 8.4 % INJ 50ML VIAL IV ONE (02:30)
[2020-10-27] MEDS ORDERED: PHENYLEPHRINE IV 250 ML IV ONE (04:11)
[2020-10-27] MEDS: InsuLIN REG 1unit/0.01ml Soln (100units/ml) SC SCH ×2 (06:00)
[2020-10-27] MEDS ORDERED: PHENYLEPHRINE IV 250 ML IV SCH (06:00)
[2020-10-27] MEDS: ACCU-CHEK COMFORT CURVE STRIP VI SCH ×2 (06:00)
[2020-10-27 06:23] LABS: Hemoglobin 7.4 g/dL (12.2-16.2)
[2020-10-27 06:28] LABS: Mean Corpuscular Hemoglobin 31.7 pg (28.0-32.0); Mean Corpuscular Hgb Conc. 30.8 g/dL (32.0-36.0); Platelet Count (auto) 206 10^3/uL (140-450); Red Blood Cells 2.33 10^6/uL (4.0-5.20); Red Cell Distribution Width 14.5 % (11.8-14.3)
[2020-10-27 06:37] LABS: Calcium 6.1 mg/dL (8.5-10.1)
[2020-10-27 06:49] LABS: BUN/Creatinine Ratio 26.2
[2020-10-27] MEDS: BUDESONIDE (INHALATION) 0.5 MG/2 ML NEB NEB SCH (06:50)
[2020-10-27] MEDS: ALBUTEROL SULF 2.5 MG/0.5ML(0.5%) NEB SOLN NEB SCH (06:50)
[2020-10-27] MEDS: IPRATROPIUM BROM 0.5 MG/2.5ML INH SOL NEB SCH (06:50)
[2020-10-27 06:51] LABS: White Blood Cell 50.1 10^3/uL (4.4-10.8)
[2020-10-27 06:52] LABS: Basophils % (manual) 0 (0.0-2.0); Blast Cells 0; Eosinophils % (manual) 0 (0-7); Reactive Lymphocytes 0
[2020-10-27] MEDS ORDERED: VASOPRESSIN 20 UNIT/ML ONE (06:59)
[2020-10-27] MEDS ORDERED: SODIUM BICARBONATE 8.4% INJ 50ML SYRINGE ONE (07:19)
[2020-10-27] MEDS ORDERED: EPINEPHrine HCL 250 ML IV ONE (07:23)
[2020-10-27] MEDS ORDERED: EPINEPHrine HCL 250 ML IV SCH (07:30)
[2020-10-27] MEDS ORDERED: DOPamine 1600MCG/ML D5W 250 ML IV SCH (07:45)
[2020-10-27] MEDS ORDERED: DOBUTamine 1000MCG/ML 250 ML IV SCH (07:45)
[2020-10-27 08:22] LABS: Band Neutrophils % (manual) 13; Lymphocytes % (manual) 10 (10.0-50.0); Metamyelocytes % 5; Monocytes % (manual) 2 (0-12); Myelocytes % 3; Promyelocytes % 1
[2020-10-27 08:43] LABS: Potassium 5.7 mmol/L (3.5-5.1)
[2020-10-27] MEDS ORDERED: FLUCONAZOLE 200MG/100ML 100 ML IV SCH (10:00)
[2020-10-27] MEDS ORDERED: SODIUM BICARBONATE 8.4% INJ 50ML SYRINGE IV ONE (16:07)
[2020-10-27] MEDS ORDERED: EPINEPHrine HCL 1 MG/10 ML SYRG IV ONE (16:07)
[2020-10-27] MEDS ORDERED: CALCIUM CHLOR(10%) 100MG/ML 10ML SYRINGE IV ONE (16:07)
== END 2020-10-27 19:30 | DRG 720 ==
LOC: ER 17:32 → TELE 17:33 → TELE-WESTW 23:44 → ICU CENTRL 10-17 12:20 → DOU IN ICU 10-17 13:19
PROVIDERS: ADMIT Nurse Practitioner Acute Care; ATTEND Internal Medicine
PROC: XW033E5 Introduction of Remdesivir Anti-infective into Peripheral Vein, Percutaneous Approach, New Technology Group 5 (ICD-10-PCS; 2020-10-12)
PROC: XW13325 Transfusion of Convalescent Plasma (Nonautologous) into Peripheral Vein, Percutaneous Approach, New Technology Group 5 (ICD-10-PCS; 2020-10-14)
PROC: 5A1955Z Respiratory Ventilation, Greater than 96 Consecutive Hours (ICD-10-PCS; 2020-10-17)
PROC: 0BH17EZ Insertion of Endotracheal Airway into Trachea, Via Natural or Artificial Opening (ICD-10-PCS; 2020-10-17)
PROC: 5A09357 Assistance with Respiratory Ventilation, Less than 24 Consecutive Hours, Continuous Positive Airway Pressure (ICD-10-PCS; 2020-10-17)
PROC: 06HY33Z Insertion of Infusion Device into Lower Vein, Percutaneous Approach (ICD-10-PCS; 2020-10-17)
PROC: XW033H5 Introduction of Tocilizumab into Peripheral Vein, Percutaneous Approach, New Technology Group 5 (ICD-10-PCS; 2020-10-18)
PROC: 02HV33Z Insertion of Infusion Device into Superior Vena Cava, Percutaneous Approach (ICD-10-PCS; principal; 2020-10-24)
PROC: 5A12012 Performance of Cardiac Output, Single, Manual (ICD-10-PCS; 2020-10-27)
PROC: 5A2204Z Restoration of Cardiac Rhythm, Single (ICD-10-PCS; 2020-10-27)
DX: A41.89 Other specified sepsis (principal); N17.0 Acute kidney failure with tubular necrosis; U07.1 COVID-19; J12.89 Other viral pneumonia; J80 Acute respiratory distress syndrome; R65.21 Severe sepsis with septic shock; E44.0 Moderate protein-calorie malnutrition; E11.65 Type 2 diabetes mellitus with hyperglycemia; E66.01 Morbid (severe) obesity due to excess calories; D68.59 Other primary thrombophilia; I10 Essential (primary) hypertension; M19.90 Unspecified osteoarthritis, unspecified site; Z66 Do not resuscitate; I46.9 Cardiac arrest, cause unspecified; I70.0 Atherosclerosis of aorta; Z96.659 Presence of unspecified artificial knee joint; Z83.3 Family history of diabetes mellitus; Z82.49 Family history of ischemic heart disease and other diseases of the circulatory system; Z88.6 Allergy status to analgesic agent; Z88.8 Allergy status to other drugs, medicaments and biological substances; Z68.39 Body mass index [BMI] 39.0-39.9, adult; Z79.899 Other long term (current) drug therapy; Z79.84 Long term (current) use of oral hypoglycemic drugs; Z87.891 Personal history of nicotine dependence
CPT/HCPCS: 36415; 36569; 36600; 71045; 74018; 80048; 80053; 81001; 82306; 82728; 82805; 82962; 83036; 83605; 83615; 83735; 84100; 84484; 85007; 85025; 85027; 85379; 85610; 85730; 86141; 86850; 86900; 86901; 87040; 87070; 87077; 87426; 87804; 93970; 94002; 94003; 94640; 94660; C9113; G0378; J0171; J0330; J0696; J1100; J1815; J1956; J2250; J2543; J2704; P9047; Q0162